=== PATIENT | male | born 1995 | race Caucasian/White ===

== ENCOUNTER 2021-03-03 10:23 | Emergency (ER) | payer MEDICAID, OTHER ==
[~2021-03-03] VITALS: Ht 170.2 cm; Wt 113.4 kg
[2021-03-03 10:29] VITALS: BP 134/73
--- NOTE | 2021-03-03 10:37 | NUR ---
PT AMB TO BED 7
--- NOTE | 2021-03-03 10:45 | NUR ---
25 YO MALE BIBS WITH C/O 2/10 LEFT EAR PAIN & YEALLOWISH DISCHARGE X 2 DAYS. PATIENT STATES HE TOOK HIS MOTHERS ABX PCN. DENIES ALL OTHER MEDICAL PROBLEMS. PMH DENIES NKDA
--- NOTE | 2021-03-03 11:07 | NUR ---
dr. garrison bedside evaluating pt
--- NOTE | 2021-03-03 11:13 | NUR ---
Patient discharged with v/s stable. Written and verbal after care instructions given and explained. Patient verbalized understanding. Ambulatory with steady gait. All questions addressed prior to discharge. Advised to follow up with PMD.
== END 2021-03-03 11:13 | disposition home or self-care (01) ==
LOC: MED 10:23
DX: H72.92 Unspecified perforation of tympanic membrane, left ear (principal); F12.10 Cannabis abuse, uncomplicated
CPT/HCPCS: 99281

== ENCOUNTER 2021-03-14 09:03 | Emergency (ER) | payer OTHER ==
[~2021-03-14] VITALS: Ht 167.6 cm; Wt 113.4 kg
[2021-03-14 09:19] VITALS: BP 139/74
[2021-03-14 11:02] VITALS: BP 139/74
--- NOTE | 2021-03-14 11:02 | NUR ---
NO NURSING INTERVENTIONS PROVIDED
== END 2021-03-14 11:02 | disposition home or self-care (01) ==
LOC: MED 09:03
DX: J06.9 Acute upper respiratory infection, unspecified (principal); Z20.822 Contact with and (suspected) exposure to COVID-19
CPT/HCPCS: 71045; 87426; 99284; U0003